=== PATIENT | female | born 1955 | race Caucasian/White ===

== ENCOUNTER → 2024-02-13 09:08 | Outpatient (REF) | payer MEDICARE, BC, SELFPAY | LOC: HWWDC 09:08 | PROVIDERS: ATTENDING PHYSICIAN Nurse Practitioner | DX: Z12.31 Encounter for screening mammogram for malignant neoplasm of breast (principal) | CPT/HCPCS: 77063; 77067 ==

== ENCOUNTER → 2025-03-10 06:58 | Outpatient (REF) | payer MEDICARE, BC, SELFPAY | LOC: HWWDC 06:58 | DX: I77.810 Thoracic aortic ectasia (principal); Z12.31 Encounter for screening mammogram for malignant neoplasm of breast | CPT/HCPCS: 77063; 77067; 93306 ==

== ENCOUNTER → 2025-06-25 09:04 | Outpatient (REF) | payer MEDICARE, BC, SELFPAY | LOC: RCS 09:04 | PROVIDERS: ATTENDING PHYSICIAN Internal Medicine Cardiovascular Disease | DX: R06.09 Other forms of dyspnea (principal) | CPT/HCPCS: 93017; 93350 ==